=== PATIENT | male | born 1950 | race Caucasian/White ===

== ENCOUNTER 2017-05-21 13:51 | Emergency (ER) | payer SELFPAY ==
[~2017-05-21] VITALS: Ht 170.2 cm; Wt 136.1 kg
--- NOTE | 2017-05-21 13:53 | ER Report ---
History and Physical Time Seen By MD: 13:52 HPI/ROS CC: Hypertension, nausea vomiting, shortness of breath HPI: 66-year-old male with a past medical history of COPD, on CPAP, tobacco abuse, hypertension, lisinopril but not taking any medication for the last 2 months, polyp removal noncancerous. Patient presents to the emergency Department per EMS. 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 He then went to sleep in his [employer]. He awoke 6 a.m. with shortness of breath and hyperventilating unable to catch his breath, nausea vomiting and diarrhea. 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 He called 911. When they arrived his blood pressure was 220/115 mmHg. He was then brought to the emergency department. She Department his blood pressure is approximately 140 /100 mmHg. He continues to be short of breath. 2 L nasal cannula is 91% SaO2. He denies any chest pain chest pressure, diaphoresis, palpitations. Pain scale is 0 out of 10. He feels slightly better since arriving to the emergency department. ROS: 12 point review of systems essentially negative other than what's mentioned in history of present illness. NURSES AND OLD MEDICAL RECORDS: Reviewed PMH: Reviewed SURGICAL HX: Reviewed FAMILY HX: Noncontributory SOCIAL HX: She used to smoke one to 2 packs of cigarettes a day, occasional alcohol, denies illicit drugs. VITAL SIGNS: Reviewed CONSTITUTIONAL: 66-year-old male in moderate distress. PHYSICAL EXAM: HEENT: Pupils equal round reactive to light and accommodate, EOMI, tympanic membranes pearly white umbo present with good light reflex. Lips dry mucous membranes moist gums nonbleeding uvula midline and rises equally with phonation, oropharynx noninjected, teeth intact. NECK: Neck supple, thyroid not appreciated, anterior and posterior cervical lymphadenopathy not appreciated. Trachea midline and rises equally with phonation. CARDIAC: S1-S2 regular rate rhythm no murmurs rubs or gallops. LUNGS: Lungs decreased air movement with respiratory and respiratory rate is with mild rhonchi bilaterally posteriorly in all kirby. ABDOMEN: Abdomen soft, nondistended, bowel sounds active in all 4 quadrants, no bruits noted, no CVA tenderness. MUSCULOSKELETAL: Strength 5 out of 5 x 4 extremities, no deformities noted. Bilateral lower leg edema 2+ to midcalf. NEUROLOGIC: Patient alert and oriented by 3 Constitutional Vital Sign - Last 24 Hours 05/21/17 05/21/17 05/21/17 05/21/17 13:51 13:51 13:51 13:51 Temp 99.2 Pulse 101 101 101 Resp 7 7 17 B/P (MAP) 149/100 Pulse Ox 93 93 93 O2 Delivery Nasal Cannula O2 Flow Rate 2.0 05/21/17 05/21/17 05/21/17 05/21/17 14:00 14:00 14:21 14:21 Pulse 99 99 Resp 29 B/P (MAP) 149/100 (116) 149/100 (116) Pulse Ox 92 92 05/21/17 05/21/17 05/21/17 05/21/17 14:26 14:26 14:26 14:30 Pulse 95 101 Resp 16 17 B/P (MAP) 174/104 (127) Pulse Ox 91 91 O2 Delivery Nasal Cannula O2 Flow Rate 1.0 05/21/17 05/21/17 05/21/17 05/21/17 14:40 14:40 14:53 14:53 Pulse 94 102 Resp 18 18 Pulse Ox 94 95 O2 Delivery Nasal Cannula Nasal Cannula O2 Flow Rate 1.0 1.0 05/21/17 05/21/17 05/21/17 05/21/17 14:56 15:00 15:07 15:07 Pulse 105 101 Resp 33 18 B/P (MAP) 166/88 (114) Pulse Ox 96 95 O2 Delivery Nasal Cannula O2 Flow Rate 1.0 Medical Decision Making Data Points Result Diagram: 05/21/17 1335 05/21/17 1335 Laboratory Hematology Test 05/21/17 13:35 05/21/17 14:30 Red Blood Count 5.34 M/uL (4.00-5.60) Mean Corpuscular Volume 92.1 fL (80.0-96.0) Mean Corpuscular Hemoglobin 31.0 pg (26.0-33.0) Mean Corpuscular Hemoglobin Concent 33.6 g/dL (32.0-36.0) Red Cell Distribution Width 14.3 % (11.5-14.5) Mean Platelet Volume 8.5 fL (7.2-11.1) Neutrophils (%) (Auto) 89.4 % (39.4-72.5) Lymphocytes (%) (Auto) 3.5 % (17.6-49.6) Monocytes (%) (Auto) 6.4 % (4.1-12.4) Eosinophils (%) (Auto) 0.4 % (0.4-6.7) Basophils (%) (Auto) 0.3 % (0.3-1.4) Nucleated RBC Relative Count (auto) 0.0 /100WBC Neutrophils # (Auto) 13.7 K/uL (2.0-7.4) Lymphocytes # (Auto) 0.5 K/uL (1.3-3.6) Monocytes # (Auto) 1.0 K/uL (0.3-1.0) Eosinophils # (Auto) 0.1 K/uL (0.0-0.5) Basophils # (Auto) 0.0 K/uL (0.0-0.1) Nucleated RBC Absolute Count (auto) 0.00 K/uL Peripheral Blood Smear No Y/N Prothrombin Time 13.0 seconds (12.0-14.4) Prothromb Time International Ratio 0.98 Activated Partial Thromboplast Time 27 seconds (23-35) D-Dimer Quantitative (PE/DVT) 1.89 ug/ml (0-0.50) Sodium Level 139 mmol/L (137-145) Potassium Level 3.7 mmol/L (3.5-5.0) Chloride Level 101 mmol/L (98-107) Carbon Dioxide Level 29 mmol/L (22-30) Blood Urea Nitrogen 16 mg/dl (9-21) Creatinine 1.00 mg/dl (0.66-1.25) Glomerular Filtration Rate Calc > 60.0 Random Glucose 127 mg/dl (75-110) Calcium Level 9.1 mg/dl (8.4-10.2) Total Bilirubin 1.1 mg/dl (0.2-1.3) Aspartate Amino Transf (AST/SGOT) 34 U/L (0-35) Alanine Aminotransferase (ALT/SGPT) 42 U/L (0-56) Alkaline Phosphatase 117 U/L (0-126) Troponin I 0.022 ng/ml B-Type Natriuretic Peptide 55 pg/ml (0-100) Total Protein 9.2 gm/dl (6.3-8.2) Albumin 4.2 g/dl (3.5-5.0) Blood Gas Puncture Site Left radial Blood Gas Patient Temperature 99.2 DEGREES Arterial Blood pH 7.38 (7.35-7.45) Arterial Blood Partial Pressure CO2 42 mmHg (32-37) Arterial Blood Partial Pressure O2 79 mmHg (60-80) Arterial Blood HCO3 25 mmol/L (20-26) Arterial Blood Oxygen Saturation 95 % (92-100) Arterial Blood Base Excess 0.0 mmol/L Juan Carlos Test Acceptable Oxygen Liters/Minute 4l Chemistry Test 05/21/17 13:35 05/21/17 14:30 White Blood Count 15.3 k/uL (4.5-11.0) Red Blood Count 5.34 M/uL (4.00-5.60) Hemoglobin 16.5 g/dL (14.0-18.0) Hematocrit 49.1 % (42.0-52.0) Mean Corpuscular Volume 92.1 fL (80.0-96.0) Mean Corpuscular Hemoglobin 31.0 pg (26.0-33.0) Mean Corpuscular Hemoglobin Concent 33.6 g/dL (32.0-36.0) Red Cell Distribution Width 14.3 % (11.5-14.5) Platelet Count 286 K/uL (150-450) Mean Platelet Volume 8.5 fL (7.2-11.1) Neutrophils (%) (Auto) 89.4 % (39.4-72.5) Lymphocytes (%) (Auto) 3.5 % (17.6-49.6) Monocytes (%) (Auto) 6.4 % (4.1-12.4) Eosinophils (%) (Auto) 0.4 % (0.4-6.7) Basophils (%) (Auto) 0.3 % (0.3-1.4) Nucleated RBC Relative Count (auto) 0.0 /100WBC Neutrophils # (Auto) 13.7 K/uL (2.0-7.4) Lymphocytes # (Auto) 0.5 K/uL (1.3-3.6) Monocytes # (Auto) 1.0 K/uL (0.3-1.0) Eosinophils # (Auto) 0.1 K/uL (0.0-0.5) Basophils # (Auto) 0.0 K/uL (0.0-0.1) Nucleated RBC Absolute Count (auto) 0.00 K/uL Peripheral Blood Smear No Y/N Prothrombin Time 13.0 seconds (12.0-14.4) Prothromb Time International Ratio 0.98 Activated Partial Thromboplast Time 27 seconds (23-35) D-Dimer Quantitative (PE/DVT) 1.89 ug/ml (0-0.50) Glomerular Filtration Rate Calc > 60.0 Calcium Level 9.1 mg/dl (8.4-10.2) Total Bilirubin 1.1 mg/dl (0.2-1.3) Aspartate Amino Transf (AST/SGOT) 34 U/L (0-35) Alanine Aminotransferase (ALT/SGPT) 42 U/L (0-56) Alkaline Phosphatase 117 U/L (0-126) Troponin I 0.022 ng/ml B-Type Natriuretic Peptide 55 pg/ml (0-100) Total Protein 9.2 gm/dl (6.3-8.2) Albumin 4.2 g/dl (3.5-5.0) Blood Gas Puncture Site Left radial Blood Gas Patient Temperature 99.2 DEGREES Arterial Blood pH 7.38 (7.35-7.45) Arterial Blood Partial Pressure CO2 42 mmHg (32-37) Arterial Blood Partial Pressure O2 79 mmHg (60-80) Arterial Blood HCO3 25 mmol/L (20-26) Arterial Blood Oxygen Saturation 95 % (92-100) Arterial Blood Base Excess 0.0 mmol/L Juan Carlos Test Acceptable Oxygen Liters/Minute 4l Coagulation Test 05/21/17 13:35 Prothrombin Time 13.0 seconds Prothromb Time International Ratio 0.98 Activated Partial Thromboplast Time 27 seconds D-Dimer Quantitative (PE/DVT) 1.89 ug/ml EKG/Imaging EKG Interpretation Sinus rhythm with PACs, ventricular rate 100 bpm, NE interval 160 ms, QRS duration 82 ms, QT 346 ms, QTC 446 ms. Imaging Chest x-ray: IMPRESSION: Diffuse peribronchial and interstitial thickening is favored to be due to chronic interstitial lung disease although an acute bronchiolitis or reactive airway disease cannot be excluded. Report Dictated By: Tito Vail MD at 05/21/2017 3:[address] chest for PE protocol: IMPRESSION: 1. No evidence of pulmonary embolism. 2. No other acute findings in the chest. 3. Coronary artery calcifications. Normal heart size. 4. Hepatic steatosis. Report Dictated By: Roderick Delcid MD at 05/21/2017 3:44 PM ED Course/Re-evaluation ED Course Patient received DuoNeb treatment with mild improvement. Patient also received Solu-Medrol 125 mg IV. Patient had elevated d-dimer with shortness of breath therefore CT was done that did not reveal any signs of pulmonary embolus. Patient has improved. Patient will be discharged to home. Patient does have elevated C count. Theeyes of pneumonia. Re-evaluation MDM includes but not excluded to pneumonia, COPD exacerbation, PE. Decision to Disposition Date: May 21, 2017 Decision to Disposition Time: 16:02 Depart Departure Latest Vital Signs Vital Signs Date Time Temp Pulse Resp B/P (MAP) Pulse Ox O2 Delivery O2 Flow Rate FiO2 05/21/17 15:07 95 Nasal Cannula 1.0 05/21/17 15:07 101 18 05/21/17 15:00 166/88 (114) 05/21/17 13:51 99.2 Impression: Primary Impression: COPD exacerbation Condition: Improved Disposition: HOME OR SELF-CARE New Scripts Prednisone 10 Mg Tab (PREDNISONE 10 MG TAB) 10 Mg Tablet 50 MG PO QDAY, #47 TAB 50 mg by mouth daily for 3 days then 40 mg by mouth daily for 3 days then 30 mg by mouth daily for 3 days then 20 mg by mouth daily for 3 days then 10 mg by mouth daily for 3 days then 5 mg by mouth daily for 3 days. Prov: GUIDO QUINTANILLA MD 05/21/17 Azithromycin (ZITHROMAX) 250 Mg Tablet 0 PO QDAY, #6 TAB Prov: GUIDO QUINTANILLA MD 05/21/17 Patient Instructions: COPD (Chronic Obstructive Pulmonary Disease) (ED) Additional Instructions: Treatment prednisone take as directed. Follow-up with your regular physician. I and the staff wanted to thank you for allowing us to take care of your needs today in the emergency department at [facility]. We have tried to answer all of your questions and concerns. Please feel free to return to the emergency department for any further concerns or unanswered questions. GUIDO QUINTANILLA MD May 21, 2017 13:53
[2017-05-21] MEDS ORDERED: methylPREDNIS SUCC 125 MG/2ML IVP ONE (14:15)
[2017-05-21 14:24] LABS: PLATELET COUNT, AUTOMATED 286 K/uL (150-450)
[2017-05-21] MEDS: ALBUTEROL/IPRATROPIUM 3 ML NEB NEB SCH ×3 (14:29→14:53)
--- NOTE | 2017-05-21 14:32 | EKG ---
FACILITY: [facility] - [place] PATIENT NAME: ARGENTINA WILKES : [id number] MR: [id number] V: [id number] EXAM DATE: ORDERING PHYSICIAN: GUIDO QUINTANILLA TECHNOLOGIST: RACHAEL Paiz Reason : RESPIRATORY Blood Pressure : / mmHG Vent. Rate : 100 BPM Atrial Rate : 100 BPM P-R Int : 160 ms QRS Dur : 082 ms QT Int : 346 ms P-R-T Axes : 060 -25 071 degrees QTc Int : 446 ms Sinus rhythm with premature atrial complexes Cannot rule out Anterior infarct , age undetermined Abnormal ECG No previous ECGs available Confirmed by ARTIE WARD ([id number]) on 05/23/2017 2:58:16 PM Referred By: SOCORRO Confirmed By:ARTIE WARD
[2017-05-21 14:33] LABS: INR 0.98
[2017-05-21] MEDS ORDERED: IOPAMIDOL 76% 75 ML INFUS BTL 0 ML ONE (15:04)
[2017-05-21] MEDS ORDERED: NS 0.9% 50 ML VIAL 100 ML ONE (15:04)
[2017-05-21] MEDS ORDERED: IOPAMIDOL 76% 75 ML INFUS BTL 75 ML ONE (15:06)
[2017-05-21] MEDS ORDERED: IOPAMIDOL 76% 50 ML INFUS BTL 50 ML ONE (15:06)
--- NOTE | 2017-05-21 15:32 | RADIOLOGY IMAGING REPORT ---
FACILITY: [facility] - [place] PATIENT NAME: Ruslan Huynh : 1950 MR: [id number] V: [id number] EXAM DATE: ORDERING PHYSICIAN: GUIDO QUINTANILLA TECHNOLOGIST: Location: [facility] - [place] Patient: Ruslan Huynh : 1950 Visit/Account:[id number] Date of Sevice: 05/21/2017 Examination: CHEST PA AND LAT Comparison: None. History: Respiratory distress. Findings: Cardiac and hilar contour size is within normal limits. Generalized peribronchial and inter stitial thickening. No consolidation or nodule. No pneumothorax, edema, or effusion. Osseous structur es are intact. IMPRESSION: Diffuse peribronchial and interstitial thickening is favored to be due to chronic interstitial lung d isease although an acute bronchiolitis or reactive airway disease cannot be excluded. Report Dictated By: Tito Vail MD at 05/21/2017 3:26 PM Report E-Signed By: Tito Vail MD at 05/21/2017 3:27 PM WSN:[id number]
--- NOTE | 2017-05-21 15:52 | RADIOLOGY IMAGING REPORT ---
FACILITY: [facility] PATIENT NAME: Ruslan Huynh : 1950 MR: [id number] V: [id number] EXAM DATE: ORDERING PHYSICIAN: GUIDO QUINTANILLA TECHNOLOGIST: Location: [facility] Patient: Ruslan Huynh : 1950 Visit/Account:[id number] Date of Sevice: 05/21/2017 EXAMINATION: CTA of the chest with IV contrast HISTORY: Shortness of breath. TECHNIQUE: Pulmonary embolus protocol - Thin axial CT images of the chest were obtained with IV con trast during maximal pulmonary arterial opacification. Reconstruction of the source data includes mul tiplanar 2D coronal and sagittal reconstructed images, and 3D coronal and sagittal MIP images. Repres entative images have been stored on PACS. One of the following dose optimization techniques was utilized in the performance of this exam: Autom ated exposure control; adjustment of the mA and/or kV according to the patient's size; or use of an i terative reconstruction technique. Specific details can be referenced in the facility's radiology C T exam operational policy. Contrast: 120 mL of IV Isovue-[id number]. COMPARISON: None. FINDINGS: Image quality is mildly degraded by respiratory motion artifact. Pulmonary arteries: The pulmonary arteries are moderately well opacified, without suspicious filling defect. Heart, aorta, and great vessels: Normal caliber thoracic aorta, without aneurysm or dissection. Vasc ular calcifications, including coronary artery calcifications. Normal heart size. No pericardial effu beverley. Lungs and pleura: The lungs are clear. No focal consolidation. No pleural effusion or pneumothorax. The central airways are patent. Mediastinum and azra: Prominent fat pad at the cardiac apex. No enlarged hilar or mediastinal lymph nodes. Visualized upper abdomen: Fatty infiltration of the liver. Chest wall: Negative. Bones: Negative. IMPRESSION: 1. No evidence of pulmonary embolism. 2. No other acute findings in the chest. 3. Coronary artery calcifications. Normal heart size. 4. Hepatic steatosis. Report Dictated By: Roderick Delcid MD at 05/21/2017 3:44 PM Report E-Signed By: Roderick Delcid MD at 05/21/2017 3:49 PM WSN:[id number]
[2017-05-21 16:00] VITALS: BP 161/105
[2017-05-21] MEDS ORDERED: AZIT-1 PO (16:05)
[2017-05-21] MEDS ORDERED: PRED-1 PO (16:07)
[2017-05-21] MEDS ORDERED: EMS NS 0.9%(*) 1000 ML BAG 1,000 ML IV ONE (16:40)
== END 2017-05-21 16:32 | disposition home or self-care (01) ==
LOC: ER 13:59
DX: J44.1 Chronic obstructive pulmonary disease with (acute) exacerbation (principal)
CPT/HCPCS: 36600; 71020; 71275; 82803; 83880; 84484; 85025; 85379; 85610; 85730; 87040; 93005; 94644; 96361; 96374; 99284; J2930; J7050; J7620; Q9967; 82040; 82247; 82310; 82374; 82435; 82565; 82947; 84075; 84132; 84155; 84295; 84450; 84460; 84520

== ENCOUNTER → 2017-05-21 | Outpatient (CLI) | payer SELFPAY ==
[~2017-05-21] MED LIST: AZIT-1 PO; PRED-1 PO
== END ==
LOC: AMB 13:18
PROVIDERS: ATTEND Nurse Practitioner
DX: R06.02 Shortness of breath (principal); R11.2 Nausea with vomiting, unspecified; R19.7 Diarrhea, unspecified; R53.1 Weakness; R09.02 Hypoxemia; I10 Essential (primary) hypertension
CPT/HCPCS: A0425; A0427